=== PATIENT | female | born 1945 | race Two or more races ===

== ENCOUNTER 2024-12-24 07:20 | Emergency (ER) | payer MEDICARE, MEDICAID, SELFPAY ==
--- NOTE | 2024-12-24 07:41 | XR_ITS ---
Examination: AP chest single view TECHNIQUE: AP semiupright portable chest single view Date and time: December 24, 2024 0809 hours Comparison 03/09/2024 INDICATIONS: Dizziness beginning 3 days ago. FINDINGS: Parenchymal disease in the lingular segment obscuring detail left cardiac contour CABG Mild to moderate elevation right hemidiaphragm. No pulmonary edema IMPRESSION: Recommend lateral chest view follow-up to assess parenchymal disease in the lingular segment
--- NOTE | 2024-12-24 07:41 | XR_ITS ---
Examination: CT brain head without contrast. 2-D sagittal coronal reconstructions Date and time of exam:December 24, 2024 0802 hours Comparison June 27, 2023 INDICATIONS: Dizziness vertigo today CTDI: vol (mGy):46.9 DLP: (mGycm):888 Technique: Multiple CT axial sections of the brain have been obtained, 5 mm slice thickness. Contrast has not been administered. 2-D sagittal, coronal reconstructions have been obtained Low dose protocols were performed. One or more of the following dose reduction techniques were used; automated exposure control, adjustment of the mA and/or KV according to patient size, use of iterative reconstruction technique. Findings: No significant ventricular enlargement. Intra-axial or extra-axial hemorrhage density is not seen. No mass effect or midline shift Basal cisterns are not remarkable. Fourth ventricle is midline. Cranial vault intact. Impression: Negative for acute hemorrhage, mass effect or midline shift If symptoms persists, consider brain MRI follow-up
--- NOTE | 2024-12-24 07:42 | EKG_ITS ---
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
[2024-12-24 07:43] VITALS: BP 112/74; PULSE 87; RESP 18; TEMP 37.2; O2SAT 95; BMI 29.9
[2024-12-24 08:12] VITALS: PULSE 83
[2024-12-24 08:27] VITALS: BP 138/71; PULSE 81; RESP 18; O2SAT 95
--- NOTE | 2024-12-24 08:30 | EDNOTE_ITS ---
ED General RME/HPI General Chief complaint: Nausea/Vomiting/Diarrhea Stated complaint: FATIGUE, NUASEA, DIZZY X 3 DAYS Time Seen by Provider: 12/24/24 08:21 Arrival date/time: 12/24/24 07:20 RME / HPI RME / HPI narrative: see MDM Related Data Home Medications ?Medication ?Instructions ?Recorded ?Confirmed metformin 500 mg tablet 500 mg PO BID 03/21/2303/23 Held on 03/23/23. Instructions: Resume on 03/25/23. do not take Metformin today and tommorrow. You can re-start this medication on 03-25-23 at your regular schedule. Por favor not tome Metformin el susi de hoy ni tampoco manana. Esta medicina se la puede volver a milan el susi 15 de re a la hora que usualmente se la mac olmesartan 40 mg tablet 40 mg PO QDAY 03/23/2303/23 Previous Rx's ?Medication ?Instructions ?Recorded ciprofloxacin HCl 500 mg tablet 500 mg PO BID 5 days # 10 tabs 12/24/24 Allergies Allergy/AdvReac Type Severity Reaction Status Date / Time No Known Allergies Allergy Verified 12/24/24 07:24 Review of Systems Review of Systems Systems Reviewed: All systems reviewed, normal except as documented ED Exam Narrative Physical exam: GENERAL: NAD, AAOx3 HEENT: Moist mucosa. Eyes open, symmetrical, & clear CARDIO: Heart RRR, no obvious murmurs PULM: No noted coughing/dyspnea CTA B/L, no R/W/R GI: Abdomen soft, nondistended, no pain on palpation. BSx4 SKIN/MSK/EXT: No wounds/rashes/edema/amputations, no pain on palpation. Pedal pulses present B/L NEURO: AAOx3, no focal neuro deficits, able to move all 4 extremities Course Course Course Narrative: see MDM. 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 12/24/24 07:41 Active EKG (ED ONLY) *Do not use* NOW Care 12/24/24 07:[address] head/brain wo con Stat Exams 12/24/24 07:41 Completed EKG (ED Only) Stat Exams 12/24/24 07:42 Draft XR chest 1V portable Stat Exams 12/24/24 07:41 Completed B-Type Natriuretic Peptide Stat Lab 12/24/24 08:24 Completed CBC Stat Lab 12/24/24 08:24 Completed Comprehensive Metabolic Panel Stat Lab 12/24/24 08:24 Completed Lactic Acid [Lactate (Lactic Acid)] Stat Lab 12/24/24 09:10 Completed Magnesium Stat Lab 12/24/24 08:24 Completed Partial Thromboplastin Time Stat Lab 12/24/24 08:24 Completed Procalcitonin Stat Lab 12/24/24 08:24 Completed Prothrombin Time with INR Stat Lab 12/24/24 08:24 Completed Troponin I Stat Lab 12/24/24 08:24 Completed Urinalysis Stat Lab 12/24/24 09:22 Completed Ciprofloxacin HCl [Ciprofloxacin] Med 12/24/24 10:59 Discontinued 500 mg PO X1 ONE Magnesium Sulfate 4 GM Ivpb [Magnesium Sulfate Ivpb] Med 12/24/24 09:24 Active 4 gm in 50 ml IV X1 Potassium Chloride [K-Dur] Med 12/24/24 11:00 Discontinued 40 meq PO X1 ONE Vital Signs Vital signs: Vital Signs Temperature 99 F 12/24/24 07:43 Pulse Rate 87 12/24/24 07:43 Respiratory Rate 18 12/24/24 07:43 Blood Pressure 112/74 12/24/24 07:43 Pulse Oximetry (%) 95 12/24/24 07:43 Oxygen Delivery Method Room Air 12/24/24 07:43 Discharge Plan Plan Patient Disposition: HOME (Self Care) Prescriptions/Referrals Prescriptions/Med Rec: New ciprofloxacin HCl 500 mg tablet 500 mg PO BID 5 Days Qty: 10 0RF No Action metformin 500 mg tablet 500 mg PO BID Patient Comments: TAKE 1 TABLET BY MOUTH TWICE A DAY WITH FOOD olmesartan 40 mg Tablet 40 mg PO QDAY Referrals: Ari Rodríguez MD [Primary Care Provider] - In 1 week Problem List Clinical Impression: Urinary tract bacterial infections Patient/Caregiver Discharge Instructions Additional Instructions: Patient can be safely discharged with p.o. antibiotics for UTI with strict return precautions. He has been prescribed ciprofloxacin 500 mg twice a day for urinary tract infection for a total of 5 days please take this medication as prescribed. Should any symptoms recur or worsen patient is instructed to return to the ER Print Language: Slovenian Stand Alone Forms: Eun Award Info., Patient Portal Info Letter MDM Narrative MDM hospital course: 78-year-old female past medical history of hypertension, diabetes, hyperlipidemia, vertigo, CAD status post CABG X3 presented to the ED with generalized weakness. Patient states that she has had the symptoms since Sunday has been gradually getting worse she describes being unable to walk with generalized weakness, as well as some nausea and vomiting and shortness of breath. Reports history of vertigo and symptoms today are different. Additionally reports history of anxiety and believes that may be contributing to her symptoms. EKG shows no acute ST changes, labs ordered, head CT negative, chest x-ray ordered 1059: CBC unremarkable, CMP shows hypomagnesemia, UA shows UTI, magnesium sulfate given Ciprofloxacin 500 mg p.o. x 1 given Patient can be safely discharged with p.o. antibiotics for UTI with strict return precautions. Should any symptoms recur or worsen patient is instructed to return to the ER. Clinical Information Provided by patient Medical Records Reviewed [facility] Chronic Illness/Social Conditions which may negatively complicate care or outcome(s)-explain: CHF/CAD/Cardiac illness Medication Administration(s) Medication Administration History Magnesium Sulfate (Magnesium Sulfate Ivpb) 4 gm in 50 mls @ 12.5 mls/hr IV X1 ONE Stop: 12/24/24 13:23 Last Admin: 12/24/24 09:37 Dose: 12.5 mls/hr Documented By: JUMA Discontinued Medications Ciprofloxacin (Ciprofloxacin Hcl 250 Mg Tablet) 500 mg PO X1 ONE Stop: 12/24/24 11:00 Potassium Chloride (Potassium Chloride 20 Meq Tabcr) 40 meq PO X1 ONE Stop: 12/24/24 11:01 Last Admin: 12/24/24 09:37 Dose: 40 meq Documented By: JUMA Comments: per ok to give
[2024-12-24 08:44] LABS: Basophils # (Auto) 0.1 Thou/mm3 (0.0-0.2); Basophils % (Auto) 1 % (0-2.5); Eosinophils # (Auto) 0.1 Thou/mm3 (0.0-0.5); Eosinophils % (Auto) 1 % (0-10); Hematocrit 37.9 % (36.0-46.0); Hemoglobin 13.0 g/dL (12.0-16.0); Immature Granulocytes Auto 0.09 Thou/mm3 (0.00-0.00); Lymphocytes # (Auto) 1.8 Thou/mm3 (1.0-4.8); Lymphocytes % (Auto) 18 % (10-50); Mean Corpuscular HGB Conc 34.3 g/dl (31.0-37.0); Mean Corpuscular Hemoglobin 30.4 pg (25.0-35.0); Mean Corpuscular Volume 89 fL (80-100); Monocytes # (Auto) 0.7 Thou/mm3 (0.0-0.8); Monocytes % (Auto) 7 % (0-12); Neutrophils # (Auto) 7.4 Thou/mm3 (1.8-7.7); Neutrophils % (Auto) 73 % (37-80); Nucleated Red Blood Cell # 0.00 Thou/mm3 (0.00-0.00); Nucleated Red Blood Cell % 0 /100 WBC (0); Platelet Count 251 Thou/mm3 (140-440); RDW Standard Deviation 42.7 fL (36.4-46.3); Red Blood Count 4.27 Miln/mm3 (4.00-5.20); White Blood Count 10.1 Thou/mm3 (3.6-11.0)
[2024-12-24 08:54] LABS: INR 1.4 (0.9-1.3); Partial Thromboplastin Time 28.5 Seconds (22.0-36.0); Prothrombin Time 14.6 Seconds (9.0-12.2)
[2024-12-24 09:10] LABS: B-Type Natriuretic Peptide < 20 pg/mL (0-100)
[2024-12-24 09:12] LABS: Alanine Aminotransferase 22 U/L (10-49); Albumin, Serum 4.3 gm/dL (3.4-4.8); Albumin/Globulin Ratio 1.6 (1.2-2.2); Alkaline Phosphatase 64 U/L (46-116); Anion Gap 10 (7-16); Aspartate Amino Transferase 26 U/L (0-34); BUN/Creatinine Ratio 11 Ratio (12-20); Bilirubin,Total 0.9 mg/dL (0.3-1.2); Blood Urea Nitrogen 12 mg/dL (9-23); Calcium 9.8 mg/dL (8.3-10.6); Calcium (Corrected) 9.8 mg/dL (8.5-10.1); Carbon Dioxide 25.7 mMol/L (20.0-31.0); Chloride 104 mMol/L (98-107); Creatinine (Component) 1.1 mg/dL (0.6-1.3); Estimated Creatinine Clearance 43.8 mL/min (>60); Globulin 2.7 gm/dL (2.3-3.5); Glucose 136 mg/dL (74-106); Magnesium 1.1 mg/dL (1.6-2.6); Osmolality,Calculated 281 (275-295); Potassium 3.6 mMol/L (3.4-5.1); Sodium 140 mMol/L (136-145); Total Protein 7.0 gm/dL (5.7-8.2); Troponin I < 0.020 ng/mL (0.0-0.045); eGFR 51 See Note
[2024-12-24 09:17] LABS: Lactate (Lactic Acid) 1.9 mMol/L (0.4-2.0)
--- NOTE | 2024-12-24 09:24 | PC.NURSE ---
pt gave ua sample and sent to labs
[2024-12-24 09:30] LABS: Collection Type, Urine Clean Catch
[2024-12-24] MEDS: Magnesium Sulfate 4 GM Ivpb 4 GM/50 ML BAG IV (09:37)
[2024-12-24 09:51] LABS: Bacteria,Urine 1+; Bilirubin,Urine Negative (Negative); Blood,Urine Negative (Negative); Clarity,Urine Turbid (Clear/Hazy); Color,Urine Yellow (Lt Yel-Yel); Glucose, Urine Negative (Negative); Hyaline Casts,Urine 4 /hpf (0-1); Ketones,Urine Trace (Negative); Leukocyte Esterase,Urine Positive (Negative); Nitrite,Urine Positive (Negative); PH,Urine 5.5 (5.0-7.0); Protein,Urine 1+ (Neg - Trace); RBC,Urine 8 /hpf (0-3); Specific Gravity,Urine 1.024 (1.001-1.035); Squamous Epithelial Cell,Urine 5 /hpf (0-5); Urobilinogen,Urine Negative mg/dL (0.0-1.0); WBC,Urine 60 /hpf (0-5)
[2024-12-24 10:00] LABS: Procalcitonin 0.05 ng/ml (0.0-0.49)
[2024-12-24 10:11] VITALS: BP 151/96; PULSE 66; RESP 28; TEMP 36.8; O2SAT 95
[2024-12-24] MEDS: CIPROFLOXACIN HCL 250 MG TABLET 500 MG PO (11:14)
[2024-12-24 13:12] VITALS: BP 158/81; PULSE 76; RESP 16; TEMP 36.8; O2SAT 95
== END 2024-12-24 13:13 | disposition home or self-care (01) ==
PROVIDERS: Nurse Practitioner Primary Care; Emergency Provider Student in an Organized Health Care Education/Training Program; PCP Family Medicine
DX: N39.0 Urinary tract infection, site not specified (principal); R11.2 Nausea with vomiting, unspecified; R94.31 Abnormal electrocardiogram [ECG] [EKG]; R42 Dizziness and giddiness
CPT/HCPCS: 36415; 70450; 71045; 80053; 81001; 83605; 83735; 83880; 84145; 84484; 85025; 85610; 85730; 93005; 96365; 96366; 99283; J3475; A9270

== ENCOUNTER 2025-01-09 10:57 | Emergency (ER) | payer MEDICARE, MEDICAID, SELFPAY ==
[2025-01-09 10:58] VITALS: BMI 30.9
[2025-01-09 11:08] VITALS: BP 138/82; PULSE 77; RESP 18; TEMP 36.8; O2SAT 96; BMI 30.9
--- NOTE | 2025-01-09 11:16 | XR_ITS ---
Examination: AP chest single view Technique one AP portable upright chest single view Date and time: January 09, 2025 1204 hours Comparison December 24, 2024 INDICATIONS: Shortness of breath today FINDINGS: Normal heart size CABG. Subsegmental atelectasis in the lung zones. Lobulation right hemidiaphragm No pneumonia or pulmonary edema IMPRESSION: No pneumonia or pulmonary edema
--- NOTE | 2025-01-09 11:16 | EKG_ITS ---
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
--- NOTE | 2025-01-09 11:17 | PD.EDRME ---
Rapid Medical Screening Exam [facility] Arrival date/time: 01/09/25 10:57 CC: Short of breath with rapid breathing rate HPI ongoing for the past week was seen here 2 and half weeks ago for similar complaints family member at bedside confirms patient denies chest pain nausea or vomiting. Chief Complaint: Shortness of Breath/Dyspnea Vital signs: Vital Signs Temperature 98.2 F 01/09/25 11:08 Pulse Rate 77 01/09/25 11:08 Respiratory Rate 18 01/09/25 11:08 Blood Pressure 138/82 H 01/09/25 11:08 Pulse Oximetry (%) 96 01/09/25 11:08 Oxygen Delivery Method Room Air 01/09/25 11:08
[2025-01-09] MEDS: RINGERS LACTATED 1000 ML 1,000 ML 999 ML IV (11:51)
--- NOTE | 2025-01-09 11:52 | EDNOTE_ITS ---
ED General RME/HPI General Chief complaint: Shortness of Breath/Dyspnea Stated complaint: SOB X2 WEEKS Time Seen by Provider: 01/09/25 11:31 Arrival date/time: 01/09/25 10:57 RME / HPI RME / HPI narrative: 79-year-old female patient with significant history of hypertension diabetes mellitus came in for evaluation regarding shortness of breath. Patient has been having worsening shortness of breath for the last 2 weeks, last night was noted to be coughing, nonproductive. Patient also was noted to have dyspnea on exertion. Patient complaining of left breast tenderness for more than a year now. Patient denies any fever denies any chest pain on coughing. Denies any abdominal pain. Denies any other complaints. Patient was seen here about 2 weeks ago and was diagnosed with UTI. Patient denies any vomiting diarrhea constipation or other complaints. Patient is taking her medication with good compliance. Patient lives alone however there is a good support from the family. Related Data Home Medications ?Medication ?Instructions ?Recorded ?Confirmed metformin 500 mg tablet 500 mg PO BID 03/21/2303/23 Held on 03/23/23. Instructions: Resume on 03/25/23. do not take Metformin today and tommorrow. You can re-start this medication on 03-25-23 at your regular schedule. Por favor not tome Metformin el susi de hoy ni tampoco manana. Esta medicina se la puede volver a milan el susi 15 de Octubre a la hora que usualmente se la mac olmesartan 40 mg tablet 40 mg PO QDAY 03/23/2303/23 Allergies Allergy/AdvReac Type Severity Reaction Status Date / Time No Known Allergies Allergy Verified 12/24/24 07:24 Review of Systems Review of Systems Narrative Review of Systems: Review of system reviewed and within normal limits except mentioned in HPI ED Exam Narrative Physical exam: VITAL SIGNS: Reviewed. GENERAL APPEARANCE: Alert and interactive, follows commands, no acute distress, HEAD AND FACE: Non-traumatic. ENT: PERRL, pink conjunctivitis, eyelid no trauma, Mucous membrane moist. NECK: Supple, nontender, no nuchal rigidity. CHEST: No tenderness, no crepitus, no paradoxical movement, no retractions. LUNGS: Clear, well ventilated, symmetric, no rales, no wheezing, no ronchi, no stridor, good breath sounds bilaterally. HEART: Regular rate, regular rhythm, no murmur, no gallops. ABDOMEN: Soft, positive bowel sounds, nondistended, no guarding, nontender, no rebound, no masses, RECTAL: Deferred. GENITAL: Deferred. NEUROLOGICAL: Gross motor function intact sensory function intact, Appropriate for age. MUSCULOSKELETAL: low back nontender, full range of motion. EXTREMITIES: Nontender, full range of motion. SKIN: Color pink, dry, no rash, no lacerations, no abrasions, no contusions. LYMPHATICS: Deferred. Course Quality Measures none Orders Category Date Time Status EKG (ED ONLY) *Do not use* NOW Care 01/09/25 11:16 Completed EKG (ED Only) Stat Exams 01/09/25 11:16 Draft US renal BI Stat Exams 01/09/25 12:49 Completed XR chest 1V Stat Exams 01/09/25 11:16 Completed B-Type Natriuretic Peptide Stat Lab 01/09/25 11:52 Completed BMP [Basic Metabolic Panel] Stat Lab 01/09/25 15:03 Completed CBC Stat Lab 01/09/25 11:52 Completed Comprehensive Metabolic Panel Stat Lab 01/09/25 11:52 Completed Drug Screen,Urine Stat Lab 01/09/25 12:49 Completed LDH (Lactate Dehydrogenase) Stat Lab 01/09/25 11:52 Completed Magnesium Stat Lab 01/09/25 11:52 Completed Partial Thromboplastin Time Stat Lab 01/09/25 11:52 Completed Prothrombin Time with INR Stat Lab 01/09/25 11:52 Completed Troponin I Stat Lab 01/09/25 11:52 Completed Urinalysis Stat Lab 01/09/25 12:49 Completed Magnesium Sulfate 2 GM Ivpb [Magnesium Sulfate Ivpb] Med 01/09/25 12:50 Discontinued 2 gm in 50 ml IV X1 Ringers Lactated 1000 ml [Lactated Ringers] 1,000 ml Med 01/09/25 11:43 Discontinued IV 999 mls/hr Sodium Chloride 0.9% 1000 ml [Ns] 1,000 ml Med 01/09/25 13:56 Discontinued IV 999 mls/hr Vital Signs Vital signs: Vital Signs Temperature 98.2 F 01/09/25 11:08 Pulse Rate 77 01/09/25 11:08 Respiratory Rate 18 01/09/25 11:08 Blood Pressure 138/82 H 01/09/25 11:08 Pulse Oximetry (%) 96 01/09/25 11:08 Oxygen Delivery Method Room Air 01/09/25 11:08 Discharge Plan Plan Patient Disposition: HOME (Self Care) Discharge Disposition comment: Stable Prescriptions/Referrals Prescriptions/Med Rec: No Action metformin 500 mg tablet 500 mg PO BID Patient Comments: TAKE 1 TABLET BY MOUTH TWICE A DAY WITH FOOD olmesartan 40 mg Tablet 40 mg PO QDAY Referrals: Ari Rodríguez MD [Primary Care Provider] - In 1 week Problem List Clinical Impression: Dehydration, NURY (acute kidney injury) Patient/Caregiver Discharge Instructions Discharge Activity: activity as tolerated Education Materials: Dehydration Additional Instructions: Thank you for the opportunity for serving you today. You are stable for discharged . You are advised to: Follow-up with your PCP in 1 to 2 days Return to ED for worsening of symptoms Increase oral fluids Print Language: Citizen Of [place] Stand Alone Forms: Eun Award Info., Patient Portal Info Letter MILVIA/CHRIS Supervising Physician PA/CHRIS Supervising Physician: MD Lizbeth MDM Narrative MDM hospital course: 79-year-old female patient with significant history of hypertension diabetes mellitus came in for evaluation regarding shortness of breath. Patient has been having worsening shortness of breath for the last 2 weeks, last night was noted to be coughing, nonproductive. Patient also was noted to have dyspnea on exertion. Patient complaining of left breast tenderness for more than a year now. Patient denies any fever denies any chest pain on coughing. Denies any abdominal pain. Denies any other complaints. Patient was seen here about 2 weeks ago and was diagnosed with UTI. Patient denies any vomiting diarrhea constipation or other complaints. Patient is taking her medication with good compliance. Patient lives alone however there is a good support from the family. EKG as interpreted by me shows sinus rhythm, ventricular rate of 78 bpm, no ST segment elevation or depression noted. Creatinine was noted to be 2.1, after 2 L of fluid went down to 1.8. The rest of the labs unremarkable including normal chest x-ray. Normal urinalysis renal ultrasound showed Small right kidney with right renal cortical thinning Moderate renal parenchymal scar formation No hydronephrosis Patient received total of 2 L IV fluid, magnesium sulfate Medication Administration(s) Medication Administration History Discontinued Medications Lactated Ringer's (Lactated Ringers) 1,000 mls @ 999 mls/hr IV .Q1H1M ONE Stop: 01/09/25 12:43 Last Infusion: 01/09/25 12:52 Dose: Infused Documented By: Admin: 01/09/25 11:51 Dose: 999 mls/hr Documented By: EF Magnesium Sulfate (Magnesium Sulfate Ivpb) 2 gm in 50 mls @ 25 mls/hr IV X1 ONE Stop: 01/09/25 14:49 Last Infusion: 01/09/25 14:59 Dose: Infused Documented By: Admin: 01/09/25 12:59 Dose: 25 mls/hr Documented By: EF Sodium Chloride (Ns) 1,000 mls @ 999 mls/hr IV .Q1H1M ONE Stop: 01/09/25 14:56 Last Infusion: 01/09/25 15:14 Dose: Infused Documented By: Admin: 01/09/25 14:13 Dose: 999 mls/hr Documented By: EF Diagnosis Differential diagnosis: Dehydration, NURY, UTI Most likely dx, and/or detailed dx discussion: Dehydration, NURY Dispositon Disposition: Discharge Home
[2025-01-09 12:04] LABS: Basophils # (Auto) 0.1 Thou/mm3 (0.0-0.2); Basophils % (Auto) 1 % (0-2.5); Eosinophils # (Auto) 0.2 Thou/mm3 (0.0-0.5); Eosinophils % (Auto) 2 % (0-10); Hematocrit 37.2 % (36.0-46.0); Hemoglobin 12.3 g/dL (12.0-16.0); Immature Granulocytes Auto 0.04 Thou/mm3 (0.00-0.00); Lymphocytes # (Auto) 1.6 Thou/mm3 (1.0-4.8); Lymphocytes % (Auto) 18 % (10-50); Mean Corpuscular HGB Conc 33.1 g/dl (31.0-37.0); Mean Corpuscular Hemoglobin 29.6 pg (25.0-35.0); Mean Corpuscular Volume 89 fL (80-100); Monocytes # (Auto) 0.6 Thou/mm3 (0.0-0.8); Monocytes % (Auto) 7 % (0-12); Neutrophils # (Auto) 6.0 Thou/mm3 (1.8-7.7); Neutrophils % (Auto) 71 % (37-80); Nucleated Red Blood Cell # 0.00 Thou/mm3 (0.00-0.00); Nucleated Red Blood Cell % 0 /100 WBC (0); Platelet Count 304 Thou/mm3 (140-440); RDW Standard Deviation 41.6 fL (36.4-46.3); Red Blood Count 4.16 Miln/mm3 (4.00-5.20); White Blood Count 8.5 Thou/mm3 (3.6-11.0)
[2025-01-09 12:21] LABS: INR 1.3 (0.9-1.3); Partial Thromboplastin Time 25.4 Seconds (22.0-36.0); Prothrombin Time 14.2 Seconds (9.0-12.2)
[2025-01-09 12:25] LABS: Alanine Aminotransferase 12 U/L (10-49); Albumin, Serum 4.4 gm/dL (3.4-4.8); Albumin/Globulin Ratio 1.5 (1.2-2.2); Alkaline Phosphatase 64 U/L (46-116); Anion Gap 12 (7-16); Aspartate Amino Transferase 24 U/L (0-34); BUN/Creatinine Ratio 9 Ratio (12-20); Bilirubin,Total 0.4 mg/dL (0.3-1.2); Blood Urea Nitrogen 18 mg/dL (9-23); Calcium 9.8 mg/dL (8.3-10.6); Calcium (Corrected) 9.8 mg/dL (8.5-10.1); Carbon Dioxide 24.8 mMol/L (20.0-31.0); Chloride 107 mMol/L (98-107); Creatinine (Component) 2.1 mg/dL (0.6-1.3); Estimated Creatinine Clearance 22.5 mL/min (>60); Globulin 2.9 gm/dL (2.3-3.5); Glucose 120 mg/dL (74-106); LDH (Lactate Dehydrogenase) 235 U/L (120-246); Magnesium 1.0 mg/dL (1.6-2.6); Osmolality,Calculated 289 (275-295); Potassium 3.6 mMol/L (3.4-5.1); Sodium 144 mMol/L (136-145); Total Protein 7.3 gm/dL (5.7-8.2); Troponin I < 0.020 ng/mL (0.0-0.045); eGFR 24 See Note
--- NOTE | 2025-01-09 12:49 | XR_ITS ---
Examination: Retroperitoneal ultrasound, complete Technique: Multiple high resolution grayscale images of the retroperitoneum obtained, including kidneys and bladder. Exam date and time:January 09, 2025 1310 hours INDICATIONS: Renal insufficiency on laboratory examination today FINDINGS: Right kidney 10.2 cm cortex 1.2 cm Left kidney 12.4 cm cortex 1.8 cm Moderate renal scar formation No hydronephrosis Contracted urinary bladder IMPRESSION: Small right kidney with right renal cortical thinning Moderate renal parenchymal scar formation No hydronephrosis
[2025-01-09 12:56] LABS: Collection Type, Urine Clean Catch
[2025-01-09] MEDS: Magnesium Sulfate 2 GM Ivpb 2 GM/50 ML BAG IV (12:59)
[2025-01-09 13:00] LABS: B-Type Natriuretic Peptide < 20 pg/mL (0-100)
[2025-01-09 13:04] LABS: Bacteria,Urine Rare; Bilirubin,Urine Negative (Negative); Blood,Urine Negative (Negative); Clarity,Urine Clear (Clear/Hazy); Color,Urine Lt-Yellow (Lt Yel-Yel); Glucose, Urine Negative (Negative); Ketones,Urine Negative (Negative); Leukocyte Esterase,Urine Positive (Negative); Nitrite,Urine Negative (Negative); PH,Urine 6.0 (5.0-7.0); Protein,Urine Negative (Neg - Trace); RBC,Urine 1 /hpf (0-3); Specific Gravity,Urine 1.008 (1.001-1.035); Squamous Epithelial Cell,Urine 1 /hpf (0-5); Urobilinogen,Urine Negative mg/dL (0.0-1.0); WBC,Urine 4 /hpf (0-5)
[2025-01-09 13:08] LABS: Amphetamine/Methamp Scrn,U Negative (Negative); Barbiturate Screen,Urine Negative (Negative); Benzodiazepines Screen,Urine Negative (Negative); Benzoylecgonine Screen, Ur Negative (Negative); Fentanyl Screen,Urine Negative (Negative); Opiate Screen,Urine Negative (Negative); THC Screen,Urine Negative (Negative)
[2025-01-09 13:35] VITALS: BP 151/71; PULSE 60; RESP 20; TEMP 36.4; O2SAT 96
[2025-01-09] MEDS: SODIUM CHLORIDE 0.9% 1000 ML 1,000 ML 999 ML IV (14:13)
[2025-01-09 15:41] LABS: Anion Gap 10 (7-16); BUN/Creatinine Ratio 9 Ratio (12-20); Blood Urea Nitrogen 16 mg/dL (9-23); Calcium 8.8 mg/dL (8.3-10.6); Carbon Dioxide 25.9 mMol/L (20.0-31.0); Chloride 110 mMol/L (98-107); Creatinine (Component) 1.8 mg/dL (0.6-1.3); Estimated Creatinine Clearance 26.2 mL/min (>60); Glucose 84 mg/dL (74-106); Osmolality,Calculated 290 (275-295); Potassium 3.6 mMol/L (3.4-5.1); Sodium 146 mMol/L (136-145); eGFR 28 See Note
[2025-01-09 16:40] VITALS: BP 162/89; PULSE 64; RESP 19; TEMP 36.7; O2SAT 96
[2025-01-09 17:23] VITALS: BP 172/84; PULSE 74; RESP 18; TEMP 36.9; O2SAT 95
== END 2025-01-09 17:25 | disposition home or self-care (01) ==
PROVIDERS: Nurse Practitioner Family; Registered Nurse General Practice; Emergency Provider Family Medicine; PCP Family Medicine
DX: E86.0 Dehydration (principal); N17.9 Acute kidney failure, unspecified; R94.31 Abnormal electrocardiogram [ECG] [EKG]; Z60.2 Problems related to living alone; I10 Essential (primary) hypertension; R06.02 Shortness of breath
CPT/HCPCS: 36415; 71045; 76770; 80048; 80053; 80307; 81001; 83615; 83735; 83880; 84484; 85025; 85610; 85730; 93005; 96361; 96365; 96366; 99283; J3475; J7030; J7120

== ENCOUNTER 2025-01-20 17:18 | Emergency (ER) | payer MEDICARE, MEDICAID, SELFPAY ==
[2025-01-20 17:18] VITALS: BMI 30.5
[2025-01-20 17:34] VITALS: BP 162/81; PULSE 89; RESP 17; TEMP 37.3; O2SAT 95
--- NOTE | 2025-01-20 18:06 | XR_ITS ---
Examination: AP lateral chest 2 views Technique portable upright AP chest 2 views Date and time: January 20, 2025 1817 hours INDICATIONS: Colon positive patient with shortness of breath today. FINDINGS: Stable linear scarring in the lower lung zones and lingular segment compared with January 09, 2025 No interval pneumonia or pulmonary edema Normal heart size No lobar pneumonia or pulmonary edema. IMPRESSION: No interval pneumonia or pulmonary edema
--- NOTE | 2025-01-20 18:10 | PD.EDRME ---
Rapid Medical Screening Exam [facility] Arrival date/time: 01/20/25 17:18 Chief Complaint: Flu Like Symptoms Time Seen by Provider: 01/20/25 17:45 Vital signs: Vital Signs Temperature 99.1 F 01/20/25 17:34 Pulse Rate 89 01/20/25 17:34 Respiratory Rate 17 01/20/25 17:34 Blood Pressure 162/81 H 01/20/25 17:34 Pulse Oximetry (%) 95 01/20/25 17:34 Oxygen Delivery Method Room Air 01/20/25 17:34 Vital signs reviewed by provider: Yes RME Narrative: 79-year-old female presents to the ED with a complaint of shortness of breath, orthopnea, feeling of anxiety, cough, and fever. She was recently seen by her primary care provider and told she has kidney disease. She is complaining of low back pain. I have greeted and performed a focused initial assessment of this patient. A comprehensive ED assessment and evaluation of the patient, analysis of all test results, and completion of the medical decision making process will be conducted by additional ED providers.
--- NOTE | 2025-01-20 18:12 | EKG_ITS ---
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1945 Requested By: Nohemi Sauceda Order Number: [id number] Reading MD: Nohemi Sauceda Measurements Intervals [place] Rate: 88 P: 23 MS: 149 QRS: -30 QRSD: 96 T: 59 QT: 373 QTc: 451 Interpretive Statements SINUS RHYTHM INCOMPLETE RIGHT BUNDLE BRANCH BLOCK [90+ ms QRS DURATION, TERMINAL R IN V1/V2, 40+ ms S IN I/aVL/V4/V5/V6] POSSIBLE ANTERIOR MYOCARDIAL INFARCTION , PROBABLY OLD [30 ms Q WAVE IN V3/V4, OR R < 0.2 mV IN V4] Compared to ECG 01/09/2025 11:20:22 Incomplete right bundle-branch block now present Myocardial infarct finding now present ST (T wave) deviation no longer present /store/S0/[id number]/[id number]
--- NOTE | 2025-01-20 18:38 | PD.EDADULT ---
ED General RME/HPI General Chief complaint: Flu Like Symptoms Stated complaint: FLU LIKE SYMPTOMS; [facility] Time Seen by Provider: 01/20/25 17:45 Arrival date/time: 01/20/25 17:18 RME / HPI RME / HPI narrative: 79-year-old female presents to the ED with a complaint of shortness of breath, orthopnea, feeling of anxiety, cough, and fever. She was recently seen by her primary care provider and told she has kidney disease. She is complaining of low back pain. I have greeted and performed a focused initial assessment of this patient. A comprehensive ED assessment and evaluation of the patient, analysis of all test results, and completion of the medical decision making process will be conducted by additional ED providers. 79-year-old female with past medical history of hypertension, DM2, hyperlipidemia, and CAD s/p bypass concerned due to complaints of shortness of breath for the past day and she feels very anxious. Patient states that she also has a productive cough with whitish phlegm and has been unable to properly sleep for the past day as well. Patient stated that she also feels weak and and that her lower extremities have been swelling. She states that she saw her PCP yesterday and that she was told that she had some kidney issues. Patient otherwise has not had any fevers and she did have a sick contact at home which also had the same symptoms. Per patient and patient's daughter she has been having the symptoms for the past few months. Otherwise no other complaints at this time other than anxiety. Denies any smoking, drugs, alcohol Related Data Home Medications ?Medication ?Instructions ?Recorded ?Confirmed metformin 500 mg tablet 500 mg PO BID 03/21/23 03/23/23 Held on 03/23/23. Instructions: Resume on 03/25/23. do not take Metformin today and tommorrow. You can re-start this medication on 03-25-23 at your regular schedule. Por favor not tome Metformin el susi de hoy ni tampoco manana. Esta medicina se la puede volver a milan el susi 15 de Marubre a la hora que usualmente se la mac olmesartan 40 mg tablet 40 mg PO QDAY 03/23/23 03/23/23 Previous Rx's ?Medication ?Instructions ?Recorded nitrofurantoin 100 mg PO BID 5 days #10 caps 01/20/25 monohydrate/macrocrystals 100 mg capsule Allergies Allergy/AdvReac Type Severity Reaction Status Date / Time No Known Allergies Allergy Verified 01/20/25 17:21 Review of Systems Review of Systems Systems Reviewed: All systems reviewed, normal except as documented Past Medical History Past Medical History NEUROLOGIC: Negative Neurological Disorders, Cerebrovascular Accident, Transient Ischemic Attacks (TIA), Dementia, Alzheimer's Disease, Parkinson's Disease, Brain Tumor, Meningitis, Seizures, Epilepsy, Multiple Sclerosis, Cerebral Palsy, Amyotrophic Lateral Sclerosis (ALS/Ester Gehrig's), Guillain-Camden Syndrome, Spina Bifida, Paralysis, Peripheral Neuropathy, Acevedo's Palsy, Subdural Hematoma, Migraine, Head Trauma, Spinal Cord Injury or Traumatic Brain Injury CARDIAC: Positive Cardiac Disorders (triple bypass), Angina (palpitations), Coronary Artery Disease, Hypercholesterolemia, Congestive Heart Failure and Hypertension; Negative Myocardial Infarction, Cardiac Arrhythmia, Atrial Fibrillation, Heart Murmur, Atherosclerotic Heart Disease, Peripheral Vascular Disease, Aneurysm, Congenital Heart Disease, Valvular Heart Disease, Rheumatic Fever, Cardiomyopathy, Edema, Pericarditis, Cellulitis, Deep Vein Thrombosis, Hypotension or Varicose Veins RESPIRATORY: Negative Chronic Obstructive Pulmonary Disease (COPD), Asthma, Bronchitis, Emphysema, Pneumonia, Pulmonary Fibrosis, Cystic Fibrosis, Tuberculosis, Pulmonary Embolism, Pulmonary Edema or Sleep Apnea GASTROINTESTINAL: Positive Hemorrhoids (1 year ago); Negative Gastrointestinal Disorders, Hepatitis, Cirrhosis, Pancreatitis, Celiac Disease, Gall Bladder Disease, Gastrointestinal Bleed, Esophageal Varices, Umaña's Esophagus, Colitis, Ulcerative Colitis, Diverticulitis, Diverticulosis, Ulcer, Colorectal Cancer, Irritable Bowel, Crohn's Disease, Obstructive Bowel, Hiatal Hernia, Gastroesophageal Reflux Disease or Obesity GENITOURINARY: Negative Genitourinary Disorders, Renal Disease, Kidney Stones, Polycystic Kidney Disease, Neurogenic Bladder, Inguinal Hernia or Dialysis REPRODUCTIVE: Positive Previous Pregnancies (); Negative Breast Cancer, Endometriosis, Genital Herpes, Gonorrhea, Pelvic Inflammatory Disease, Syphilis or Uterine Prolapse MUSCULOSKELETAL: Positive Musculoskeletal Disorders and Arthritis (back); Negative Muscular Dystrophy, Myasthenia Gravis, Marfan's Syndrome, Bone Cancer, Rheumatoid Arthritis, Osteoporosis, Degenerative Disk Disease, Gout, Scoliosis, Carpal Tunnel Syndrome, Fibromyalgia, Fractures, Degenerative Joint Disease, Osteomyelitis or Poliovirus ENT: Negative Cataracts, Glaucoma, Blind, Retinal Detachment, Macular Degeneration, Ear Infection, Deafness, Head Trauma or Eye Prosthesis ENDOCRINE: Positive Endocrine Disorders, Diabetes Mellitus Type 2 and Hypothyroidism; Negative Diabetes Mellitus Type 1, Hypoglycemia, Hyperthyroidism, Parathyroid Disease, Pituitary Disease, Systemic Lupus Erythematosus, Syndrome of Inappropriate Antidiuretic Hormone (SIADH) or Graves' Disease HEMATOLOGIC: Negative Blood Disorders, Anemia, Leukemia, Hemophilia, Thalassemia, Sickle Cell Disease or Clotting Problems PSYCHO/SOCIAL: Positive Anxiety; Negative Psychiatric Problems, Schizophrenia, Recreational Drug Use, Bipolar Disorder, Depression, Behavior Problems, Self-Mutilation, Attention Deficit Disorder, Attention Deficit Hyperactivity Disorder, Depression, Post Traumatic Stress Disorder or Eating Disorder OTHER HISTORY: Positive Falls (cabg); Negative Hospitalization, Autoimmune Disease, Down Syndrome, Autism, Developmental Delay, Shingles, Blood Transfusions, Blood Transfusion Reaction, Anesthesia Reactions, Organ Transplant, Chemotherapy, Radiation Therapy, Hyperbaric Therapy, MRSA, VRSA, Vancomycin-Resistant Enterococci, Human Immunodeficiency Virus (HIV), Chicken Pox, Measles, Mumps, Rubella (Mauritian Measles), Pertussis, Clostridium Difficile, Cancer, Breast Cancer, Cervical Cancer, Colorectal Cancer, Lung Cancer or Ovarian Cancer Family History FAMILY HISTORY: Negative Family Psychiatric Problems, Family Respiratory Disorders, Family Cardiac Disorders, Family Gastrointestinal Problems, Family Cancer, Family Surgery or Family Anesthesia Reaction Surgical History SURGICAL: Positive Cardiac Surgery, Open Heart Surgery, Coronary Artery Bypass Graft, Cardiac Catheterization and Angiogram; Negative Valve Replacement, Vascular Surgery, Coronary Stent, Pacemaker, Auto Implanted Cardiovert Defib, Carotid Endarterectomy, Endocrine Surgery, Thyroidectomy, Ear Surgery, Tympanostomy Tube, Eye Surgery, Nose Surgery, Oral Surgery, Tonsillectomy, Adenoidectomy, Cochlear Implant, Corneal Transplant, Throat Surgery, Abdominal Surgery, Tracheostomy, Gastric Bypass Surgery, Gastrostomy, Bowel Surgery, Nephrectomy, Transurethral Resection, Joint Replacement, Amputation, Open Reduction Internal Fixation, Arthroscopy, Neurologic Surgery, Brain Shunt, Mastectomy, Lumpectomy, Hysterectomy, Tubal Ligation, Section or Organ Transplant Social History SMOKING STATUS: Never smoker ED Exam Narrative Physical exam: Gen: A&O X 3, anxious appearing HEENT: NCAT, EOMI, Pupils reactive JESSICA, not icteric. External ears normal. No rhinorrhea. Moist mucous membranes. Neck: Supple, full range of motion, no observable masses, No meningeal sign. Lungs: No Respiratory distress, clear bilateral. CV: RRR, no murmurs. Abdomen: Soft, nondistended, No rebound tenderness. MSK: No joint swelling, no redness, peripheral pulses presents, lumbar with no edema, trace pedal edema. Skin: No rashes, petechiae, lesions. Neuro: No focal neurological deficits appreciated, sensory and motor intact. Psych: Cooperative, but very anxious Course Quality Measures none Orders Category Date Time Status EKG (ED ONLY) *Do not use* NOW Care 01/20/25 18:12 Completed IV [Insert IV] NOW Care 01/20/25 18:09 Active EKG (ED Only) Stat Exams 01/20/25 18:12 Draft XR chest 2V Stat Exams 01/20/25 18:06 Completed BNP [B-Type Natriuretic Peptide] Stat Lab 01/20/25 19:01 Completed Blood Culture (Lab) Stat Lab 01/20/25 19:01 Received CBC Stat Lab 01/20/25 19:01 Completed CMP [Comprehensive Metabolic Panel] Stat Lab 01/20/25 19:01 Completed CRP [C-Reactive Protein] Stat Lab 01/20/25 19:01 Completed Free T4 (Free Thyroxine) Stat Lab 01/20/25 19:01 Completed LDH (Lactate Dehydrogenase) Stat Lab 01/20/25 19:01 Completed Lactic Acid [Lactate (Lactic Acid)] Stat Lab 01/20/25 19:01 Completed Lactic Acid [Lactate (Lactic Acid)] Stat Lab 01/20/25 23:30 Results Lactic Acid, 3 HR Stat Lab 01/20/25 22:51 Completed Magnesium Stat Lab 01/20/25 19:01 Completed Procalcitonin Stat Lab 01/20/25 19:01 Completed TSH [Thyroid Stimulating Hormone] Stat Lab 01/20/25 19:01 Completed Troponin I Stat Lab 01/20/25 19:01 Completed Urinalysis, C/S if Indicated Stat Lab 01/20/25 20:02 Completed Urine Culture Stat Lab 01/20/25 20:02 Received Albuterol/Ipratr Rt Maritza [Duoneb Rt Maritza] Med 01/20/25 19:33 Discontinued 3 ml INH X1 ONE LORazepam [Ativan] Med 01/20/25 19:36 Discontinued 0.5 mg PO X1 ONE Magnesium Sulfate 2 GM Ivpb [Magnesium Sulfate Ivpb] Med 01/20/25 19:35 Discontinued 2 gm in 50 ml IV X1 Magnesium Sulfate 2 GM Ivpb [Magnesium Sulfate Ivpb] Med 01/20/25 19:46 Discontinued 2 gm in 50 ml IV X1 Magnesium Sulfate 2 GM Ivpb [Magnesium Sulfate Ivpb] Med 01/20/25 21:03 Discontinued 2 gm in 50 ml IV X1 Potassium Chloride [K-Dur] Med 01/20/25 19:34 Discontinued 20 meq PO X1 ONE Sodium Chloride 0.9% 500 ml [Ns] 500 ml Med 01/20/25 19:33 Discontinued IV 999 mls/hr Sodium Chloride 0.9% 500 ml [Ns] 500 ml Med 01/20/25 23:17 Discontinued IV 999 mls/hr cefTRIAXone/D5w 1gm IV premix [Rocephin/D5w 1gm IV Med 01/20/25 23:30 Discontinued premix] 1 gm in 50 ml IV X1 Vital Signs Vital signs: Vital Signs Temperature 99.1 F 01/20/25 17:34 Pulse Rate 89 01/20/25 17:34 Respiratory Rate 17 01/20/25 17:34 Blood Pressure 162/81 H 01/20/25 17:34 Pulse Oximetry (%) 95 01/20/25 17:34 Oxygen Delivery Method Room Air 01/20/25 17:34 Discharge Plan Plan Patient Disposition: HOME (Self Care) Prescriptions/Referrals Prescriptions/Med Rec: New nitrofurantoin monohyd/m-cryst 100 mg capsule 100 mg PO BID 5 Days Qty: 10 0RF Rx Instructions: must administer with a meal/food No Action metformin 500 mg tablet 500 mg PO BID Patient Comments: TAKE 1 TABLET BY MOUTH TWICE A DAY WITH FOOD olmesartan 40 mg Tablet 40 mg PO QDAY Referrals: Ari Rodríguez MD [Primary Care Provider] - In 1 week Problem List Clinical Impression: COVID-19, Anxiety, SOB (shortness of breath), UTI (urinary tract infection) Patient/Caregiver Discharge Instructions Other Activity Instructions:: Follow-up primary care physician within 2 or 3 days We have prescribed Macrobid twice daily for the next 5 days. Would recommend discussing with primary care physician possibility of seeing therapist for your anxiety and starting you on some anxiolytics. Would recommend Tylenol every 6 hours for the next 2 or 3 days for pain or fevers. Come back to the ED if you develop any fevers, chills, worsening shortness of breath, worsening weakness, or any other worsening symptoms. Saque jaleesa de seguimiento con nunn m?dico de cabecera en 2 o 3 d?as. Le hemos recetado Macrobid dos veces al d?a ean los pr?ximos 5 d?as Recomendar?a hablar con nunn m?dico de cabecera sobre la posibilidad de consultar con un terapeuta para la ansiedad y comenzar a milan ansiol?ticos. Recomendar?a Tylenol cada 6 horas ean los pr?ximos 2 o 3 d?as para el dolor o la fiebre. Regrese a urgencias si presenta fiebre, escalofr?os, aumento de la dificultad para respirar, aumento de la debilidad o cualquier otro s?ntoma que empeore. Education Materials: COVID-19 Home Care, Your Body's Response to Anxiety, Understanding Urinary Tract ..., ED Shortness of Breath (Dyspnea) Print Language: Kosovan Stand Alone Forms: [employer] Award Info., Patient Portal Info Letter MDM Narrative MDM hospital course: Patient was seen and evaluated upon arrival to the room by myself. Diagnostic labs were reviewed by myself and showed no WBC elevation, patient's vitals have been stable, potassium was slightly low at 3.2, lactic acid was mildly elevated at 2.8. Otherwise chest x-ray did not show any pneumonia. Ordered breathing treatment along with IV fluids and potassium and Ativan 0.5 mg p.o. x 1 for anxiety. Patient's magnesium was also low therefore ordered 4 g of magnesium. Repeat lactic acid came back elevated at 4.2 from 2.8 on repeat draw was 3.8, patient does not have any abdominal pain, dysuria, or any flank pain. Will repeat lactic acid for the possibility of lab error and will also give patient 500 mL bolus as well. Patient's UA did come back positive for bacteria patient denied having any dysuria, but mentioned that she has been urinating more frequently lately. Will order Rocephin 1 g x 1 and will discharge on p.o. antibiotics. Patient reevaluated and feeling a lot better, no signs of hypoperfusion. Patient reevaluated and states she feels better, at this time patient is stable enough to be discharged back home with close follow-up with primary care physician and outpatient workup for anxiety and will prescribe Macrobid BID for 5 days. Patient agrees with plan. Case disclosed with Attending Dr. Yvette Nathan PGY2 Disclaimer: Even though this this note was dictated by speech recognition and even though it was carefully revised there may still be minor errors in securities adviser due to voice recognition software. Medication Administration(s) Medication Administration History Discontinued Medications Albuterol/Ipratropium (Albuterol/Ipratropium (Duoneb) Rt Maritza 3 Ml Nebu) 3 ml INH X1 ONE Stop: 01/20/25 19:34 Last Admin: 01/20/25 20:24 Dose: 3 ml Documented By: SC Sodium Chloride (Ns) 500 mls @ 999 mls/hr IV .Q31M ONE Stop: 01/20/25 20:03 Last Infusion: 01/20/25 20:21 Dose: Infused Documented By: Admin: 01/20/25 19:50 Dose: 999 mls/hr Documented By: WO Magnesium Sulfate (Magnesium Sulfate Ivpb) 2 gm in 50 mls @ 25 mls/hr IV X1 ONE Stop: 01/20/25 21:34 Last Infusion: 01/20/25 22:43 Dose: Infused Documented By: Admin: 01/20/25 19:42 Dose: 25 mls/hr Documented By: WO Magnesium Sulfate (Magnesium Sulfate Ivpb) 2 gm in 50 mls @ 25 mls/hr IV X1 ONE Stop: 01/20/25 21:45 Last Admin: 01/20/25 20:08 Dose: Not Given Documented By: WO Non-Admin Reason: Cancelled by Provider Magnesium Sulfate (Magnesium Sulfate Ivpb) 2 gm in 50 mls @ 25 mls/hr IV X1 ONE Stop: 01/20/25 23:02 Last Infusion: 01/20/25 23:13 Dose: Infused Documented By: Admin: 01/20/25 21:13 Dose: 25 mls/hr Documented By: WO Sodium Chloride (Ns) 500 mls @ 999 mls/hr IV .Q31M ONE Stop: 01/20/25 23:47 Last Admin: 01/20/25 23:21 Dose: 999 mls/hr Documented By: WO Ceftriaxone Sodium/Dextrose (Rocephin/D5w 1gm Iv Premix) 1 gm in 50 mls @ 100 mls/hr IV X1 ONE Stop: 01/20/25 23:59 Last Admin: 01/20/25 23:41 Dose: 100 mls/hr Documented By: WO Lorazepam (Lorazepam 0.5 Mg Tablet) 0.5 mg PO X1 ONE Stop: 01/20/25 19:37 Last Admin: 01/20/25 20:11 Dose: 0.5 mg Documented By: ARLINE Potassium Chloride (Potassium Chloride 20 Meq Tabcr) 20 meq PO X1 ONE Stop: 01/20/25 19:35 Last Admin: 01/20/25 19:50 Dose: 20 meq Documented By: ARLINE
[2025-01-20 19:10] LABS: Lactate (Lactic Acid) 2.8 mMol/L (0.4-2.0)
[2025-01-20 19:11] LABS: Basophils # (Auto) 0.1 Thou/mm3 (0.0-0.2); Basophils % (Auto) 1 % (0-2.5); Eosinophils # (Auto) 0.2 Thou/mm3 (0.0-0.5); Eosinophils % (Auto) 1 % (0-10); Hematocrit 38.0 % (36.0-46.0); Hemoglobin 12.7 g/dL (12.0-16.0); Immature Granulocytes Auto 0.04 Thou/mm3 (0.00-0.00); Lymphocytes # (Auto) 0.8 Thou/mm3 (1.0-4.8); Lymphocytes % (Auto) 7 % (10-50); Mean Corpuscular HGB Conc 33.4 g/dl (31.0-37.0); Mean Corpuscular Hemoglobin 29.7 pg (25.0-35.0); Mean Corpuscular Volume 89 fL (80-100); Monocytes # (Auto) 0.5 Thou/mm3 (0.0-0.8); Monocytes % (Auto) 5 % (0-12); Neutrophils # (Auto) 9.2 Thou/mm3 (1.8-7.7); Neutrophils % (Auto) 85 % (37-80); Nucleated Red Blood Cell # 0.00 Thou/mm3 (0.00-0.00); Nucleated Red Blood Cell % 0 /100 WBC (0); Platelet Count 267 Thou/mm3 (140-440); RDW Standard Deviation 41.9 fL (36.4-46.3); Red Blood Count 4.28 Miln/mm3 (4.00-5.20); White Blood Count 10.8 Thou/mm3 (3.6-11.0)
[2025-01-20 19:24] VITALS: BP 182/84; PULSE 93; RESP 19; TEMP 37.3; O2SAT 98
[2025-01-20 19:28] LABS: B-Type Natriuretic Peptide 20 pg/mL (0-100)
[2025-01-20 19:33] LABS: Alanine Aminotransferase 24 U/L (10-49); Albumin, Serum 4.4 gm/dL (3.4-4.8); Albumin/Globulin Ratio 1.6 (1.2-2.2); Alkaline Phosphatase 56 U/L (46-116); Anion Gap 12 (7-16); Aspartate Amino Transferase 47 U/L (0-34); BUN/Creatinine Ratio 6 Ratio (12-20); Bilirubin,Total 0.6 mg/dL (0.3-1.2); Blood Urea Nitrogen 6 mg/dL (9-23); C-Reactive Protein 1.2 mg/dL (0.0-0.9); Calcium 9.7 mg/dL (8.3-10.6); Calcium (Corrected) 9.7 mg/dL (8.5-10.1); Carbon Dioxide 25.6 mMol/L (20.0-31.0); Chloride 103 mMol/L (98-107); Creatinine (Component) 1.0 mg/dL (0.6-1.3); Estimated Creatinine Clearance 46.9 mL/min (>60); Free T4 (Free Thyroxine) 1.18 ng/dL (0.89-1.76); Globulin 2.7 gm/dL (2.3-3.5); Glucose 136 mg/dL (74-106); LDH (Lactate Dehydrogenase) 194 U/L (120-246); Osmolality,Calculated 280 (275-295); Potassium 3.2 mMol/L (3.4-5.1); Sodium 141 mMol/L (136-145); Thyroid Stimulating Hormone 3.68 uIU/mL (0.55-4.78); Total Protein 7.1 gm/dL (5.7-8.2); Troponin I < 0.020 ng/mL (0.0-0.045); eGFR 57 See Note
[2025-01-20] MEDS: Magnesium Sulfate 2 GM Ivpb 2 GM/50 ML BAG IV ×2 (19:42→21:13)
[2025-01-20] MEDS: SODIUM CHLORIDE 0.9% 500 ML 500 ML 999 ML IV ×2 (19:50→23:21)
[2025-01-20 20:06] LABS: Collection Type, Urine Clean Catch
[2025-01-20 20:21] LABS: Procalcitonin 0.08 ng/ml (0.0-0.49)
[2025-01-20 20:24] VITALS: PULSE 75; RESP 20; O2SAT 97
[2025-01-20] MEDS: ALBUTEROL/IPRATROPIUM (Duoneb) RT SOL 3 ML NEBU INH (20:24)
[2025-01-20 20:37] LABS: Magnesium 1.0 mg/dL (1.6-2.6)
[2025-01-20 21:02] LABS: Bacteria,Urine Rare; Bilirubin,Urine Negative (Negative); Blood,Urine Negative (Negative); Clarity,Urine Turbid (Clear/Hazy); Color,Urine Yellow (Lt Yel-Yel); Culture Indicated,Urine Contaminated; Glucose, Urine Negative (Negative); Hyaline Casts,Urine 1 /hpf (0-1); Ketones,Urine Trace (Negative); Leukocyte Esterase,Urine Positive (Negative); Nitrite,Urine Negative (Negative); PH,Urine 5.5 (5.0-7.0); Protein,Urine Trace (Neg - Trace); RBC,Urine 5 /hpf (0-3); Renal Epithelial Cells,Urine 1 /hpf (0-5); Specific Gravity,Urine 1.032 (1.001-1.035); Squamous Epithelial Cell,Urine 14 /hpf (0-5); Urobilinogen,Urine Negative mg/dL (0.0-1.0); WBC,Urine 67 /hpf (0-5)
[2025-01-20 22:07] LABS: Reflex Lactate? Y
[2025-01-20 23:10] LABS: Lactic Acid, 3 HR 4.2 mMol/L (0.4-2.0)
[2025-01-20] MEDS: cefTRIAXone/D5w 1gm IV premix 1 GM/50 ML BAG IV (23:41)
[2025-01-20 23:42] LABS: Lactate (Lactic Acid) 3.6 mMol/L (0.4-2.0)
[2025-01-21 00:20] VITALS: BP 149/70; PULSE 82; RESP 18; TEMP 37.1; O2SAT 92
[2025-01-21 02:40] LABS: Reflex Lactate? Y
== END 2025-01-21 00:24 | disposition home or self-care (01) ==
PROVIDERS: Physician Assistant; PCP Family Medicine
DX: U07.1 COVID-19 (principal); F41.9 Anxiety disorder, unspecified; N39.0 Urinary tract infection, site not specified; M54.50 Low back pain, unspecified; I10 Essential (primary) hypertension; E11.9 Type 2 diabetes mellitus without complications; E78.5 Hyperlipidemia, unspecified; I25.10 Atherosclerotic heart disease of native coronary artery without angina pectoris; I45.10 Unspecified right bundle-branch block; I25.2 Old myocardial infarction
CPT/HCPCS: 36415; 71046; 80053; 81001; 83605; 83615; 83735; 83880; 84145; 84439; 84443; 84484; 85025; 86140; 87040; 87086; 87400; 87811; 93005; 94640; 96365; 96366; 99284; A9270; J0696; J3475; J7999

== ENCOUNTER 2025-05-08 06:48 | Emergency (ER) | payer MEDICARE, MEDICAID, SELFPAY ==
[2025-05-08 06:50] VITALS: BMI 30.7
[2025-05-08 07:20] VITALS: BP 160/89; PULSE 100; RESP 18; TEMP 37.2; O2SAT 95
--- NOTE | 2025-05-08 07:23 | XR_ITS ---
EXAMINATION: PA chest single view TECHNIQUE: Upright PA chest single view Date and time: May 08, 2025, 0720 hours INDICATIONS: Nausea vomiting fever back pain congestion today. FINDINGS: Mild prominence left ventricle CABG Accentuation basilar bronchovascular markings. No pulmonary edema Prominent osteopenia IMPRESSION: Basilar bronchitis versus bronchiectasis, clinical correlation advised
--- NOTE | 2025-05-08 07:32 | EDRME_ITS ---
Rapid Medical Screening Exam [facility] Arrival date/time: 05/08/25 06:48 80-year-old female with a history of type 2 diabetes, hyperlipidemia, presents to the emergency room with a chief complaint of bodyaches, cough, lower lumbar back pain, x 2 days I have greeted and performed a focused initial assessment of this patient. A comprehensive ED assessment and evaluation of the patient, analysis of all test results, and completion of the medical decision making process will be conducted by additional ED providers. Chief Complaint: Nausea/Vomiting/Diarrhea Time Seen by Provider: 05/08/25 06:59 Vital signs: Vital Signs Temperature 98.9 F 05/08/25 07:20 Pulse Rate 100 05/08/25 07:20 Respiratory Rate 18 05/08/25 07:20 Blood Pressure 160/89 H 05/08/25 07:20 Pulse Oximetry (%) 95 05/08/25 07:20 Oxygen Delivery Method Room Air 05/08/25 07:20 Vital signs reviewed by provider: Yes Exam: Soft nontender abdomen Clear bilateral lung sounds Clinical Impression: Pneumonia/URI/UTI
[2025-05-08 07:33] VITALS: TEMP 37.2
[2025-05-08] MEDS: ACETAMINOPHEN 500 MG TABLET 1000 MG PO (07:33)
[2025-05-08] MEDS: ONDANSETRON ODT 4 MG TABRAP PO (07:34)
[2025-05-08 08:16] LABS: COVID-19 Antigen (In-House) Negative (Negative)
[2025-05-08 08:20] LABS: Collection Type, Urine Clean Catch
[2025-05-08 08:22] LABS: Influenza A Ag Negative; Influenza B Ag Negative
[2025-05-08 08:27] LABS: Basophils # (Auto) 0.1 Thou/mm3 (0.0-0.2); Basophils % (Auto) 0 % (0-2.5); Eosinophils # (Auto) 0.1 Thou/mm3 (0.0-0.5); Eosinophils % (Auto) 1 % (0-10); Hematocrit 38.2 % (36.0-46.0); Hemoglobin 12.3 g/dL (12.0-16.0); Immature Granulocytes Auto 0.09 Thou/mm3 (0.00-0.00); Lymphocytes # (Auto) 0.7 Thou/mm3 (1.0-4.8); Lymphocytes % (Auto) 5 % (10-50); Mean Corpuscular HGB Conc 32.2 g/dl (31.0-37.0); Mean Corpuscular Hemoglobin 29.6 pg (25.0-35.0); Mean Corpuscular Volume 92 fL (80-100); Monocytes # (Auto) 0.7 Thou/mm3 (0.0-0.8); Monocytes % (Auto) 5 % (0-12); Neutrophils # (Auto) 12.5 Thou/mm3 (1.8-7.7); Neutrophils % (Auto) 88 % (37-80); Nucleated Red Blood Cell # 0.00 Thou/mm3 (0.00-0.00); Nucleated Red Blood Cell % 0 /100 WBC (0); Platelet Count 244 Thou/mm3 (140-440); RDW Standard Deviation 46.0 fL (36.4-46.3); Red Blood Count 4.15 Miln/mm3 (4.00-5.20); White Blood Count 14.2 Thou/mm3 (3.6-11.0)
[2025-05-08 08:33] LABS: Bilirubin,Urine Negative (Negative); Blood,Urine Negative (Negative); Clarity,Urine Clear (Clear/Hazy); Color,Urine Lt-Yellow (Lt Yel-Yel); Glucose, Urine Negative (Negative); Ketones,Urine 1+ (Negative); Leukocyte Esterase,Urine Positive (Negative); Nitrite,Urine Negative (Negative); PH,Urine 7.0 (5.0-7.0); Protein,Urine Negative (Neg - Trace); RBC,Urine 1 /hpf (0-3); Specific Gravity,Urine 1.017 (1.001-1.035); Squamous Epithelial Cell,Urine 2 /hpf (0-5); Urobilinogen,Urine Negative mg/dL (0.0-1.0); WBC,Urine 10 /hpf (0-5)
[2025-05-08 08:42] LABS: Alanine Aminotransferase 34 U/L (10-49); Albumin, Serum 4.5 gm/dL (3.4-4.8); Albumin/Globulin Ratio 1.7 (1.2-2.2); Alkaline Phosphatase 62 U/L (46-116); Anion Gap 10 (7-16); Aspartate Amino Transferase 33 U/L (0-34); BUN/Creatinine Ratio 14 Ratio (12-20); Bilirubin,Total 0.7 mg/dL (0.3-1.2); Blood Urea Nitrogen 11 mg/dL (9-23); Calcium 9.5 mg/dL (8.3-10.6); Calcium (Corrected) 9.5 mg/dL (8.5-10.1); Carbon Dioxide 27.5 mMol/L (20.0-31.0); Chloride 103 mMol/L (98-107); Creatinine (Component) 0.8 mg/dL (0.6-1.3); Estimated Creatinine Clearance 60.0 mL/min (>60); Globulin 2.6 gm/dL (2.3-3.5); Glucose 171 mg/dL (74-106); Lipase 26 U/L (12-53); Osmolality,Calculated 282 (275-295); Potassium 3.9 mMol/L (3.4-5.1); Sodium 140 mMol/L (136-145); Total Protein 7.1 gm/dL (5.7-8.2); eGFR > 60 See Note
--- NOTE | 2025-05-08 09:54 | PD.EDFEVER ---
ED Fever RME/HPI General Chief Complaint: Nausea/Vomiting/Diarrhea Stated Complaint: NV FEVER BACK PAIN Time Seen by Provider: 05/08/25 06:59 Source: patient Arrival date/time: 05/08/25 06:48 80-year-old female with a history of type 2 diabetes presents to the emergency room with a chief complaint of nausea, fever, back pain x 3 days Mode of arrival: ambulatory Limitations: no limitations RME / HPI RME / HPI Narrative: 05/08/25 06:48 80-year-old female with a history of type 2 diabetes, hyperlipidemia, presents to the emergency room with a chief complaint of bodyaches, cough, lower lumbar back pain, x 2 days I have greeted and performed a focused initial assessment of this patient. A comprehensive ED assessment and evaluation of the patient, analysis of all test results, and completion of the medical decision making process will be conducted by additional ED providers. Exam: Soft nontender abdomen Clear bilateral lung sounds Impression: Pneumonia/URI/UTI Related Data Home Medications ?Medication ?Instructions ?Recorded ?Confirmed metformin 500 mg tablet 500 mg PO BID 03/21/23 03/23/23 Held on 03/23/23. Instructions: Resume on 03/25/23. do not take Metformin today and tommorrow. You can re-start this medication on 03-25-23 at your regular schedule. Por favor not tome Metformin el susi de hoy ni tampoco manana. Esta medicina se la puede volver a milan el susi 15 de Octubre a la hora que usualmente se la mac olmesartan 40 mg tablet 40 mg PO QDAY 03/23/23 03/23/23 Previous Rx's ?Medication ?Instructions ?Recorded levofloxacin 750 mg tablet 750 mg PO QDAY 5 days #5 tabs 05/08/25 Allergies Allergy/AdvReac Type Severity Reaction Status Date / Time No Known Allergies Allergy Verified 05/08/25 06:52 Review of Systems Review of Systems Systems Reviewed: All systems reviewed, normal except as documented Constitutional Constitutional: Reports system reviewed and no additional complaints, except as documented, Reports chills, Denies fatigue, Reports fever(s), Denies headache(s) and Reports weakness Eyes Eyes: Reports system reviewed and no additional complaints, except as documented, Denies blurry vision and Denies change in vision ENT Ears, Nose, Mouth, and Throat: Reports system reviewed and no additional complaints, except as documented, Denies otalgia, Denies headache(s), Denies nasal congestion, Denies throat swelling and Denies vertigo Cardiovascular Cardiovascular: Reports system reviewed and no additional complaints, except as documented, Denies chest pain, Denies dyspnea and Denies dyspnea on exertion Respiratory Respiratory: Reports system reviewed and no additional complaints, except as documented, Denies chest congestion, Denies cough, Denies dyspnea, Denies dyspnea on exertion and Denies wheezing Gastrointestinal Gastrointestinal: Reports system reviewed and no additional complaints, except as documented, Denies abdominal pain, Denies cramping, Denies nausea and Denies vomiting Genitourinary Genitourinary: Reports system reviewed and no additional complaints, except as documented Musculoskeletal Musculoskeletal: Reports system reviewed and no additional complaints, except as documented and Denies back pain Integumentary/Breasts Skin/Breast: Reports system reviewed and no additional complaints, except as documented and Denies wounds Neurologic Neurologic: Reports system reviewed and no additional complaints, except as documented, Denies confusion, Denies headache(s), Denies lack of coordination, Denies vertigo and Reports weakness Psychiatric Psychiatric: Reports system reviewed and no additional complaints, except as documented, Denies anxiety, Denies confusion, Denies depression, Denies paranoia, Denies suicidal ideation and Denies tactile hallucinations Endocrine Endocrine: Reports system reviewed and no additional complaints, except as documented and Denies fatigue Hematologic/Lymphatic Hematologic/Lymphatic: Reports system reviewed and no additional complaints, except as documented and Denies lymphadenopathy Allergic/Immunologic Allergic/Immunologic: Reports system reviewed and no additional complaints, except as documented, Denies throat swelling, Denies urticaria and Denies wheezing Past Medical History Past Medical History NEUROLOGIC: Negative Neurological Disorders, Cerebrovascular Accident, Transient Ischemic Attacks (TIA), Dementia, Alzheimer's Disease, Parkinson's Disease, Brain Tumor, Meningitis, Seizures, Epilepsy, Multiple Sclerosis, Cerebral Palsy, Amyotrophic Lateral Sclerosis (ALS/Ester Gehrig's), Guillain-[place] Syndrome, Spina Bifida, Paralysis, Peripheral Neuropathy, Acevedo's Palsy, Subdural Hematoma, Migraine, Head Trauma, Spinal Cord Injury or Traumatic Brain Injury CARDIAC: Positive Cardiac Disorders (triple bypass), Angina (palpitations), Coronary Artery Disease, Hypercholesterolemia, Congestive Heart Failure and Hypertension; Negative Myocardial Infarction, Cardiac Arrhythmia, Atrial Fibrillation, Heart Murmur, Atherosclerotic Heart Disease, Peripheral Vascular Disease, Aneurysm, Congenital Heart Disease, Valvular Heart Disease, Rheumatic Fever, Cardiomyopathy, Edema, Pericarditis, Cellulitis, Deep Vein Thrombosis, Hypotension or Varicose Veins RESPIRATORY: Negative Chronic Obstructive Pulmonary Disease (COPD), Asthma, Bronchitis, Emphysema, Pneumonia, Pulmonary Fibrosis, Cystic Fibrosis, Tuberculosis, Pulmonary Embolism, Pulmonary Edema or Sleep Apnea GASTROINTESTINAL: Positive Hemorrhoids (1 year ago); Negative Gastrointestinal Disorders, Hepatitis, Cirrhosis, Pancreatitis, Celiac Disease, Gall Bladder Disease, Gastrointestinal Bleed, Esophageal Varices, Umaña's Esophagus, Colitis, Ulcerative Colitis, Diverticulitis, Diverticulosis, Ulcer, Colorectal Cancer, Irritable Bowel, Crohn's Disease, Obstructive Bowel, Hiatal Hernia, Gastroesophageal Reflux Disease or Obesity GENITOURINARY: Negative Genitourinary Disorders, Renal Disease, Kidney Stones, Polycystic Kidney Disease, Neurogenic Bladder, Inguinal Hernia or Dialysis REPRODUCTIVE: Positive Previous Pregnancies (); Negative Breast Cancer, Endometriosis, Genital Herpes, Gonorrhea, Pelvic Inflammatory Disease, Syphilis or Uterine Prolapse MUSCULOSKELETAL: Positive Musculoskeletal Disorders and Arthritis (back); Negative Muscular Dystrophy, Myasthenia Gravis, Marfan's Syndrome, Bone Cancer, Rheumatoid Arthritis, Osteoporosis, Degenerative Disk Disease, Gout, Scoliosis, Carpal Tunnel Syndrome, Fibromyalgia, Fractures, Degenerative Joint Disease, Osteomyelitis or Poliovirus ENT: Negative Cataracts, Glaucoma, Blind, Retinal Detachment, Macular Degeneration, Ear Infection, Deafness, Head Trauma or Eye Prosthesis ENDOCRINE: Positive Endocrine Disorders, Diabetes Mellitus Type 2 and Hypothyroidism; Negative Diabetes Mellitus Type 1, Hypoglycemia, Hyperthyroidism, Parathyroid Disease, Pituitary Disease, Systemic Lupus Erythematosus, Syndrome of Inappropriate Antidiuretic Hormone (SIADH) or Graves' Disease HEMATOLOGIC: Negative Blood Disorders, Anemia, Leukemia, Hemophilia, Thalassemia, Sickle Cell Disease or Clotting Problems PSYCHO/SOCIAL: Positive Anxiety; Negative Psychiatric Problems, Schizophrenia, Recreational Drug Use, Bipolar Disorder, Depression, Behavior Problems, Self-Mutilation, Attention Deficit Disorder, Attention Deficit Hyperactivity Disorder, Depression, Post Traumatic Stress Disorder or Eating Disorder OTHER HISTORY: Positive Falls (cabg); Negative Hospitalization, Autoimmune Disease, Down Syndrome, Autism, Developmental Delay, Shingles, Blood Transfusions, Blood Transfusion Reaction, Anesthesia Reactions, Organ Transplant, Chemotherapy, Radiation Therapy, Hyperbaric Therapy, MRSA, VRSA, Vancomycin-Resistant Enterococci, Human Immunodeficiency Virus (HIV), Chicken Pox, Measles, Mumps, Rubella ([place] Measles), Pertussis, Clostridium Difficile, Cancer, Breast Cancer, Cervical Cancer, Colorectal Cancer, Lung Cancer or Ovarian Cancer Family History FAMILY HISTORY: Negative Family Psychiatric Problems, Family Respiratory Disorders, Family Cardiac Disorders, Family Gastrointestinal Problems, Family Cancer, Family Surgery or Family Anesthesia Reaction Surgical History SURGICAL: Positive Cardiac Surgery, Open Heart Surgery, Coronary Artery Bypass Graft, Cardiac Catheterization and Angiogram; Negative Valve Replacement, Vascular Surgery, Coronary Stent, Pacemaker, Auto Implanted Cardiovert Defib, Carotid Endarterectomy, Endocrine Surgery, Thyroidectomy, Ear Surgery, Tympanostomy Tube, Eye Surgery, Nose Surgery, Oral Surgery, Tonsillectomy, Adenoidectomy, Cochlear Implant, Corneal Transplant, Throat Surgery, Abdominal Surgery, Tracheostomy, Gastric Bypass Surgery, Gastrostomy, Bowel Surgery, Nephrectomy, Transurethral Resection, Joint Replacement, Amputation, Open Reduction Internal Fixation, Arthroscopy, Neurologic Surgery, Brain Shunt, Mastectomy, Lumpectomy, Hysterectomy, Tubal Ligation, Section or Organ Transplant Social History SMOKING STATUS: Never smoker Physical Exam General Limitations: no limitations General appearance: alert and in no apparent distress Head Head exam: atraumatic Eye Eye exam: Present normal appearance, PERRL and EOMI ENT ENT exam: Present normal exam, normal oropharynx and mucous membranes moist Neck Neck exam: Present normal inspection, full ROM and trachea midline Chest Chest inspection: Present normal inspection and symmetric chest wall rise Respiratory Respiratory exam: Present normal lung sounds bilaterally; Absent respiratory distress, wheezes, stridor, accessory muscle use or prolonged expiratory phase Cardiovascular Cardiovascular exam: Present regular rate, normal rhythm and normal heart sounds; Absent tachycardia Abdominal Exam Abdominal exam: Present soft and normal bowel sounds; Absent tenderness Extremities Exam Extremities exam: Present normal inspection and full ROM Back Exam Back exam: Present normal inspection and full ROM; Absent CVA tenderness (R) or CVA tenderness (L) Neurological Exam Neurological exam: Present alert, oriented X3 and CN II-XII intact Psychiatric Psychiatric exam: Present normal affect and normal mood Skin Skin exam: Present warm, dry, intact and normal color ED Exam General Limitations: Present no limitations General appearance: Present alert and in no apparent distress Head Head exam: Present atraumatic Eye Eye exam: Present normal appearance, PERRL and EOMI ENT ENT exam: Present normal exam, normal oropharynx and mucous membranes moist Neck Neck exam: Present normal inspection, full ROM and trachea midline Chest Chest inspection: Present normal inspection and symmetric chest wall rise Respiratory Respiratory exam: Present normal lung sounds bilaterally; Absent respiratory distress, wheezes, stridor, accessory muscle use or prolonged expiratory phase Cardiovascular Cardiovascular exam: Present regular rate, normal rhythm and normal heart sounds; Absent tachycardia Abdominal Exam Abdominal exam: Present soft and normal bowel sounds; Absent tenderness Extremities Exam Extremities exam: Present normal inspection and full ROM Back Exam Back exam: Present normal inspection and full ROM; Absent CVA tenderness (R) or CVA tenderness (L) Neurological Exam Neurological exam: Present alert, oriented X3 and CN II-XII intact Psychiatric Psychiatric exam: Present normal affect and normal mood Skin Skin exam: Present warm, dry, intact and normal color Course Quality Measures none Orders Category Date Time Status XR chest 1V portable Stat Exams 05/08/25 07:23 Completed CBC Stat Lab 05/08/25 07:51 Completed CMP [Comprehensive Metabolic Panel] Stat Lab 05/08/25 07:51 Completed COVID-19 Antigen (In-House) Stat Lab 05/08/25 07:37 Completed Influenza A & B Rapid Panel Stat Lab 05/08/25 07:37 Completed Lipase Stat Lab 05/08/25 07:51 Completed UA [Urinalysis] Stat Lab 05/08/25 08:07 Completed Urine Culture Stat Lab 05/08/25 08:05 Received Acetaminophen Tab [Tylenol ES Tab] Med 05/08/25 07:24 Discontinued 1,000 mg PO X1 ONE Ondansetron Odt [Zofran Odt] Med 05/08/25 07:24 Discontinued 4 mg PO X1 ONE Vital Signs Vital signs: Vital Signs Temperature 98.9 F 05/08/25 07:20 Pulse Rate 100 05/08/25 07:20 Respiratory Rate 18 05/08/25 07:20 Blood Pressure 160/89 H 05/08/25 07:20 Pulse Oximetry (%) 95 05/08/25 07:20 Oxygen Delivery Method Room Air 05/08/25 07:20 Fever MDM Narrative MDM Narrative:: 80-year-old female with a history of type 2 diabetes presents to the emergency room with a chief complaint of nausea, fever, back pain x 3 days Patient is hemodynamically stable and in no apparent distress Physical examination shows a soft nontender abdomen. The patient has no CVA tenderness. Patient has been complaining of bodyaches fatigue and weakness CBC CMP were negative for any acute findings. Urinalysis shows a urinary tract infection Patient was discharged and educated to follow-up with primary care provider in the next 24 to 48 hours and return to the emergency room for any evidence of worsening signs or symptoms Patient data External records reviewed:: [facility] previous records Clinical information provided by:: patient Social determinants that could affect healthcare access:: none Patient has the following chronic illnesses:: Type 2 diabetes How is presenting disease/condition affected by chronic disease/condition?: exacerbated by Evaluation data The following diagnostics were reviewed and interpreted by me:: lab results and radiology exam(s) Lab and/or radiology exams considered but not ordered:: Labs and radiology exams considered and ordered Interpretation Summary: N/A Medications / Prescriptions Medications or Prescriptions considered but not ordered:: Medication given Medication administrations:: Medication Administration History Discontinued Medications Acetaminophen (Acetaminophen 500 Mg Tablet) 1,000 mg PO X1 ONE Stop: 05/08/25 07:25 Last Admin: 05/08/25 07:33 Dose: 1,000 mg Documented By: DO Ondansetron HCl (Ondansetron Odt 4 Mg Tabrap) 4 mg PO X1 ONE; Protocol Stop: 05/08/25 07:25 Last Admin: 05/08/25 07:34 Dose: 4 mg Documented By: DO Medication given Consultations Consultation(s) initiated? (list below): No Diagnosis Fever Differential Diagnosis: community acquired pneumonia, pyelonephritis, viral infection and other (Urinary tract infection) Most likely diagnosis given after review of the tests above:: Urinary tract infection Admission Indicated Admission indicated?: not indicated Admission Request Was there a request for admission?: No Disposition Plan Disposition Plan: Discharge Discharge Attestation Discharge Attestation: The patient and all family members were given an opportunity to ask questions and understood the discharge instructions. Discharge instructions specifically effects, indications for sooner follow up or return to the emergency department, and the expected course of current diagnosis. Patient condition: Stable Discharge Plan Plan Patient Disposition: HOME (Self Care) Discharge Disposition comment: Stable Prescriptions/Referrals Prescriptions/Med Rec: New levofloxacin 750 mg tablet 750 mg PO QDAY 5 Days Qty: 5 0RF No Action metformin 500 mg tablet 500 mg PO BID Patient Comments: TAKE 1 TABLET BY MOUTH TWICE A DAY WITH FOOD olmesartan 40 mg Tablet 40 mg PO QDAY Referrals: Jeni Mckeon PA-C [Primary Care Provider] - In 1 week Problem List Clinical Impression: Urinary tract infection, Bronchitis Patient/Caregiver Discharge Instructions Education Materials: ED Bronchitis, No Antibiotic (Adult), ED CYSTITIS Female Adult Additional Instructions: Please follow-up with your primary care provider in the next 24 to 48 hours Antibiotics are sent to your pharmacy please pick them up and take them as indicated For any evidence of worsening signs or symptoms return to the emergency room immediately Print Language: Bolivian Stand Alone Forms: Eun Award Info., Work/School Release, Patient Portal Info Letter PA/[employer]ON ELECT[employer]ICIAN Supervising Physician PA/NEON ELECTRICIAN Supervising Physician: Dr. Danyel Desir
== END 2025-05-08 10:31 | disposition home or self-care (01) ==
PROVIDERS: Nurse Practitioner Family; Emergency Provider Emergency Medicine; PCP Physician Assistant
DX: J40 Bronchitis, not specified as acute or chronic (principal); N39.0 Urinary tract infection, site not specified
CPT/HCPCS: 36415; 71045; 80053; 81001; 83690; 85025; 87086; 87502; 87811; 99283; Q0162; A9270